=== PATIENT | male | born 1960 | race Hispanic/Latino ===

== ENCOUNTER 2016-07-15 21:23 | Emergency (ER) | payer OTHER ==
[2016-07-15 21:28] VITALS: BP 126/72; PULSE 80; RESP 16; O2SAT 97
--- NOTE | 2016-07-15 22:05 | ED.REPORT ---
HPI-Overdose/Alcohol Toxicity Date of Service July 15, 2016 ED Provider: Ajith Gamboa MD A 56 year old male with a history of alcohol and methamphetamine abuse is brought to the ED by EMS due to [place] this evening. Police initially arrived at the scene and were followed by paramedics, by which point the pt was awake and conversant. He was brought to the ED with a breathalyzer of 0.144. The pt admits to drinking three 24 ounce beers with 12% alcohol. Per pt's sons, he chronically abuses alcohol. He was last seen six hours ago and does not have a history of gambling. He has undergone three months of rehabilitation in the past without success. Nursing Notes Stated Complaint: FOUND DOWN, ETOH Chief Complaint: Substance Abuse Nursing Notes Reviewed: Yes Allergies: Coded Allergies: No Known Allergies (Verified Allergy, Unknown, 09/02/15) No Active Prescriptions or Reported Meds General Time Seen by Provider: 22:02 Chief Complaint Other (Alcohol abuse) Hx Obtained From: Patient, Other family..., EMS Arrived By: Ambulance Onset Occurred: 1 - 4 hours ago Recent Healthcare: Recent doctor visit Similar Sx Previous: Yes Past Medical History Past Medical History Notes: Seen in ED for meth abuse/tox several times in 2016 Past Medical History Hs of meth abuse Hx of alcohol abuse Reports: Depression Past Surgical History none reported Family History noncontributory Smoking History Current Every Day Smoker Social History Alcohol Use: 3-5 per day Drug Use: Meth Other Social History: Good social support, 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 Ambulatory Status Independent Review of Systems Unable to Obtain ROS Intoxicated Physical Exam Initial Vital Signs Vital Signs (First) Date Time Temp Pulse Resp B/P Pulse Ox O2 Delivery O2 Flow Rate FiO2 07/15/16 21:28 36.8 80 16 126/72 97 Room Air Initial VS: Reviewed, Vital signs normal General/Constitutional: Awake, Alert smells of EtOH does not appear confused answers questions well Respiratory / Chest: Atraumatic, Breath sounds NL, Breath sounds = bilat, No respiratory distress Cardiovascular: Heart rate NL, Regular rhythm, Heart sounds NL Abdomen: Atraumatic, Soft, Non-tender no organomegaly Neurologic: Oriented X3, No motor deficits, No sensory deficits Psychiatric: Affect NL, Mood NL Head / Eyes: Atraumatic, Normocephalic, PERRL, EOMI ENT: Atraumatic, Airway patent, Mucous membranes moist Neck: Atraumatic, Supple, Full range of motion Back: Atraumatic, Full range of motion Skin: Atraumatic, Color NL, No rash, Warm, Dry Upper Extremity / MS: Atraumatic, Full range of motion Lower Extremity / Pelvis / MS: Atraumatic, Full range of motion Re-Eval/Medical Decision Med Decision/Clinical Course 56-year-old male who recently completed a 90 day inpatient treatment at [facility]. He now relapsed. He was found intoxicated at the [facility]. There does not any appear to be any comorbid condition or evidence of trauma. His alcohol level by breathalyzer was 0.147. His physical examination is unremarkable. He is being discharged home with his sons. He will follow-up with his primary doctor for further attempts at treatment. Source of Hx: Old records Re-Evaluation/Progress : Time of Eval: 22:12 Patient Status: Condition improved Re-Evaluation/Progress Note: Pt rechecked with family present. The diagnosis and plan for discharge are discussed. The pt's family understands and agrees with the plan. All questions are addressed at this time. Counseled Regarding: Diagnosis, Lab results, Need for follow-up, When/why to return to ED Discharge & Departure Impression: Primary Impression: Alcohol intoxication Complication of substance-induced condition: uncomplicated Qualified Code: F10.120 - Alcohol abuse with intoxication, uncomplicated )( Condition at Discharge: No danger to self, No danger to others, No suicidal ideation, No homicidal ideation Disposition: Home Discharge Condition All VS Reviewed: Yes Condition: No Change Patient Instructions: Alcohol Intoxication (ED) Additional Instructions: Alcohol intoxication without evidence of injury or serious complication. Recommend that he talk to his primary doctor and/or drug and alcohol counselor about ongoing treatment. Referrals: Luann Abraham MD (PCP) Scribe Attestation Portions of this note were transcribed by Coleman Booker. I, Dr. Gamboa personally performed the history, physical exam and medical decision-making; I reviewed and confirmed the accuracy of the information in the transcribed note. Signed by: Mary Adams, 07/15/16 and [id number]. copies to: Luann Abraham MD, Howard L MD July 15, 2016 22:04 COLEMAN BOOKER July 15, 2016 22:39
[2016-07-15 22:18] VITALS: BP 122/78; PULSE 94; RESP 16; O2SAT 96
== END 2016-07-15 22:19 | disposition home or self-care (01) ==
LOC: SED 21:23
DX: F10.120 Alcohol abuse with intoxication, uncomplicated (principal); F32.9 Major depressive disorder, single episode, unspecified; F17.200 Nicotine dependence, unspecified, uncomplicated